=== PATIENT | male | born 1965 | race Two or more races ===

== ENCOUNTER 2024-04-25 02:07 | Emergency (ER) | payer OTHER ==
[~2024-04-25] VITALS: Ht 172.7 cm; Wt 77.3 kg
[2024-04-25 04:51] LABS: BASOPHILS % (AUTO) 1.7 % (0.0-2.0); HEMATOCRIT 40.5 % (41-53); HEMOGLOBIN 13.8 g/dL (13.5-17.5); LYMPHOCYTES # (AUTO) 3.2 K/uL (1.0-4.8); LYMPHOCYTES % (AUTO) 34.2 % (22.0-44.0); MEAN CORPUSCULAR HEMOGLOBIN 31.5 pg (26.0-34.0); MEAN CORPUSCULAR HGB CONC 34.1 G/dL (31.0-37.0); MEAN CORPUSCULAR VOLUME 92 fL (80-100); MONOCYTES # (AUTO) 0.7 K/uL (0.1-1.0); MONOCYTES % (AUTO) 7.3 % (2.0-9.0); NEUTROPHILS # (AUTO) 5.1 K/uL (1.8-7.7); NEUTROPHILS % (AUTO) 54.8 % (40.0-70.0); PLATELET COUNT (AUTO) 269 K/uL (150-450); RED BLOOD CELL COUNT(AUTO) 4.39 MIL/uL (4.50-5.90); RED CELL DISTRIBUTION WIDTH 12.3 % (11.5-14.5); WHITE BLOOD COUNT (AUTO) 9.3 K/uL (4.5-11.0)
[2024-04-25 05:00] LABS: ANION GAP 6 mmol/L (8-16); CALCIUM, TOTAL 8.4 mg/dL (8.8-10.5); CARBON DIOXIDE 31 mmol/L (22-29); CHLORIDE 103 mmol/L (98-107); CREATININE 1.21 mg/dL (0.60-1.30); GLOMERULAR FILTR. RATE CALC > 60 mL/min (>60); GLUCOSE,RANDOM 89 mg/dL (70-110); POTASSIUM 3.8 mmol/L (3.5-5.1); SODIUM SERUM 140 mmol/L (136-145); UREA NITROGEN, BLOOD 18 mg/dL (7-18)
[2024-04-25 05:10] LABS: TROPONIN I-HIGH SENSITIVITY Less Than 4 ng/L (<76)
[2024-04-25 05:50] LABS: B-TYPE NATRIURETIC PEPTIDE 43 pg/mL (0-100)
[2024-04-25 07:54] VITALS: BP 150/89; PULSE 65; RESP 18; TEMP 97.8; O2SAT 100
== END 2024-04-25 08:22 | disposition home or self-care (01) ==
LOC: EMS 02:07
DX: R06.02 Shortness of breath (principal); F41.9 Anxiety disorder, unspecified; F17.290 Nicotine dependence, other tobacco product, uncomplicated; Z59.00 Homelessness unspecified
CPT/HCPCS: 71045; 80048; 83880; 84484; 85025; 93005; 99285; 99406; 36415-L1; 36415-TC

== ENCOUNTER 2024-05-07 04:15 | Emergency (ER) | payer OTHER ==
[~2024-05-07] VITALS: Ht 172.7 cm; Wt 77.3 kg
[2024-05-07 04:33] VITALS: BP 143/83; PULSE 71; RESP 18; TEMP 97.9; O2SAT 100
== END 2024-05-07 07:10 | disposition left against medical advice (07) ==
LOC: EMS 04:18
DX: F41.9 Anxiety disorder, unspecified (principal); R06.02 Shortness of breath; Z53.21 Procedure and treatment not carried out due to patient leaving prior to being seen by health care provider

== ENCOUNTER 2024-06-15 02:14 | Emergency (ER) | payer OTHER ==
[~2024-06-15] VITALS: Ht 180.3 cm; Wt 100.0 kg
[2024-06-15] MEDS ORDERED: LORazepam 1 MG TABLET PO ONE (03:15)
[2024-06-15] MEDS: LORazepam 0.5 MG TABLET PO ONE (03:47)
[2024-06-15 03:52] VITALS: BP 124/67; PULSE 79; RESP 18; TEMP 97.9; O2SAT 100
== END 2024-06-15 04:43 | disposition home or self-care (01) ==
LOC: EMS 02:14
DX: F41.9 Anxiety disorder, unspecified (principal)
CPT/HCPCS: 99283